=== PATIENT | female | born 1995 | race Caucasian/White ===

== ENCOUNTER 2017-08-13 13:01 | Emergency (ER) | payer MEDICAID ==
[~2017-08-13] VITALS: Ht 165.1 cm; Wt 56.1 kg
[~2017-08-13 13:01] MED LIST: PERC5TAB12 PO
[2017-08-13 13:06] VITALS: BP 125/77; PULSE 112; RESP 18; TEMP 98.7; O2SAT 98
--- NOTE | 2017-08-13 14:31 | PD ---
HPI Chief Complaint: Skin Problem Time Seen by Provider: 13:08 Travel History International Travel<30 days: No Contact w/Intl Traveler<30days: No Traveled to known affect area: No History of Present Illness HPI Patient is a 22-year-old female 6 weeks from presents emergency department for evaluation of cough congestion and intermittent fevers as well as pain around her incision site. States symptoms been going on for more than 48 hours, she states that she spiked a fever last night and didn't think much of it because she was going to follow-up with her INSTRUMENTAL MUSICIAN today, unfortunately her INSTRUMENTAL MUSICIAN had to cancel appointment secondary to a family emergency today, she denies any chest pain shortness of breath but does endorse some vaginal discharge without vaginal bleeding. States symptoms are moderate, for the past few days, gradually worsening, context and associated signs symptoms as above. PFSH Past Medical History Hx Anticoagulant Therapy: No Blood Disorders: No Anxiety: Yes Depression: No Cancer: No Cardiovascular Problems: No Chemotherapy: No Cerebrovascular Accident: No Diabetes: No Diminished Hearing: No Endocrine: No Genitourinary: Yes (kidney stones ) Immune Disorder: No Musculoskeletal: Yes (back aches) Neurologic: No Psychiatric: Yes Reproductive: No Respiratory: No Thyroid Disease: No Tetanus Vaccination: Unknown Influenza Vaccination: No ?: Not : 2 Para: 2 Miscarriage: 0 : 0 Tubal Ligation: Yes Past Surgical History Section: Yes (x3) Hysterectomy: No Other Surgery: Yes Social History Alcohol Use: Yes (OCCASIONALLY) Tobacco Use: Yes (E cig) Substance Use: No Allergies-Medications (Allergen,Severity, Reaction): Coded Allergies: No Known Allergies (Unverified Adverse Reaction, Unknown, 08/13/17) Reported Meds & Prescriptions Reported Meds & Active Scripts Active Metrogel Vaginal Gel (Metronidazole Vaginal Gel) 0.75 % Gel 1 Appl VAGINAL HS 5 Days Review of Systems Except as stated in HPI: all other systems reviewed are Neg Physical Exam Narrative GENERAL: Well-developed well-nourished no obvious distress, nontoxic appearance. Appears well. SKIN: Focused skin assessment warm/dry. HEAD: Atraumatic. Normocephalic. EYES: Pupils equal and round. No scleral icterus. No injection or drainage. ENT: No nasal bleeding or discharge. Mucous membranes pink and moist. NECK: Trachea midline. No JVD. CARDIOVASCULAR: Regular rate and rhythm. No murmur appreciated. RESPIRATORY: No accessory muscle use. Clear to auscultation. Breath sounds equal bilaterally. GASTROINTESTINAL: Abdomen soft, non-tender, nondistended. Hepatic and splenic margins not palpable. GENITOURINARY: Exam performed with female nurse council on aging director present all times, there is some vaginal discharge whitish nature consistent with bacterial vaginosis. No cervical motion tenderness no bimanual tenderness, no tenderness of the uterus. MUSCULOSKELETAL: No obvious deformities. No clubbing. No cyanosis. No edema. NEUROLOGICAL: Awake and alert. No obvious cranial nerve deficits. Motor grossly within normal limits. Normal speech. PSYCHIATRIC: Appropriate mood and affect; insight and judgment normal. Data Data Last Documented VS Vital Signs Date Time Temp Pulse Resp B/P (MAP) Pulse Ox O2 Delivery O2 Flow Rate FiO2 08/13/17 16:42 08/13/17 16:29 97.0 70 08/13/17 13:06 18 98 Orders Orders Wet Prep Profile (08/13/17 14:43) Gc And Chlamydia Pcr (08/13/17 14:43) Acetaminophen (Tylenol) (08/13/17 14:45) Chest, Pa & Lat (08/13/17 ) Ed Discharge Order (08/13/17 16:44) Labs Laboratory Tests Test 08/13/17 16:05 Clue Cells (Wet Prep) NONE SEEN Vaginal Trichomonas (Wet Prep) NONE SEEN Vaginal Yeast (Wet Prep) NONE SEEN Chlamydia trachomatis DNA (PCR) NOT DETECTED Neisseria gonorrhoeae DNA (PCR) NOT DETECTED MDM Medical Decision Making Medical Screen Exam Complete: Yes Emergency Medical Condition: Yes Differential Diagnosis URI, pneumonia, influenza, endometritis highly unlikely, bacterial vaginosis, STD unlikely. Narrative Course Patient roomed emergency department, she appears well in no obvious distress, chest x-ray negative, symptoms consistent with bacterial vaginitis and possible influenza illness, she is breast-feeding and does not planning on stopping, therefore will be placed on MetroGel, discussed need for follow-up with her primary care physician and INSTRUMENTAL MUSICIAN. My index is suspicion for endometritis is quite low. Discussed return to ED criteria. She stable for discharge. Diagnosis Primary Impression: Bacterial vaginosis Additional Instructions: Follow-up with your INSTRUMENTAL MUSICIAN for additional instructions by phone tomorrow. Med/Other Pt SpecificInfo: Prescription(s) given Scripts Metronidazole Vaginal Gel (Metrogel Vaginal Gel) 0.75 % Gel 1 APPL VAGINAL HS for Infection for 5 Days, #1 TUBE 0 Refills Prov: Jhonathan Loza MD 08/13/17 Disposition: 01 DISCHARGE HOME Condition: Stable Jhonathan Loza MD Aug 13, 2017 14:31
[2017-08-13] MEDS ORDERED: ACETAMINOPHEN 325 MG TAB PO ONE (14:45)
--- NOTE | 2017-08-13 15:49 | RADRPT ---
EXAM DATE/TIME: 08/13/2017 15:35 [facility] COMPARISON: No previous studies available for comparison. INDICATIONS : Cough and fever for 10 days. MEDICAL HISTORY : None. SURGICAL HISTORY : section. ENCOUNTER: Initial ACUITY: 1 week PAIN SCORE: 0/10 LOCATION: Bilateral chest FINDINGS: PA and lateral views of the chest demonstrate the lungs to be symmetrically aerated without evidence of mass, infiltrate or effusion. The cardiomediastinal contours are unremarkable. Osseous structure s are intact. CONCLUSION: No acute disease. Nomi Martin MD on August 13, 2017 at 15:47 Board Certified Radiologist. This report was verified electronically.
[2017-08-13 16:29] VITALS: BP 118/72; PULSE 70; TEMP 97
[2017-08-13] MEDS ORDERED: METR0.7528 VAGINAL (16:40)
== END 2017-08-13 16:58 | disposition home or self-care (01) ==
LOC: PHED 13:01
DX: N76.0 Acute vaginitis (principal); B96.89 Other specified bacterial agents as the cause of diseases classified elsewhere; F41.9 Anxiety disorder, unspecified; F17.290 Nicotine dependence, other tobacco product, uncomplicated; Z87.442 Personal history of urinary calculi
CPT/HCPCS: 71046; 87210; 87491; 87591; 99284